=== PATIENT | female | born 1975 | race Caucasian/White ===

== ENCOUNTER → 2016-09-20 | Outpatient (CLI) | payer BC ==
[~2016-09-20] MED LIST: HUMULIN R100 UNITS/ SC; Motrin PO; NAPROSYN500 MG PO; PERCOCET 5/31 TABLET PO; PREFERA-OB P1 TABLET PO; Percocet 5/325,Endoc PO; ZOFRAN4 MG PO
== END | disposition home or self-care (01) ==
LOC: CDC 11:40
DX: Z01.810 Encounter for preprocedural cardiovascular examination (principal); E66.01 Morbid (severe) obesity due to excess calories
CPT/HCPCS: 93000

== ENCOUNTER → 2016-10-18 | Outpatient (CLI) | payer BC ==
[~2016-10-18] VITALS: Ht 167.6 cm; Wt 118.8 kg
[~2016-10-18] MED LIST changes: +GLUCOPHAGE500 MG PO; +METFORMIN HCL1000 M3 PO; +MIRENA52 MG IY; +TYLENOL EXTRA500 MG PO; +ZYRTEC10 M3 PO
[2016-10-18 13:54] LABS: ANION GAP 10 MEQ/L (2-14); CHLORIDE 104 MEQ/L (99-109); POTASSIUM 3.7 MEQ/L (3.7-5.4); SAMPLE HEMOLYSIS CHECK 0; SAMPLE ICTERIC CHECK 0; SAMPLE LIPEMIA CHECK 0; SODIUM 139 MEQ/L (136-147)
[2016-10-18 14:00] LABS: GFR ESTIMATE (CALCULATED) > 59 mL/min/; GLUCOSE 97 mg/dL (70-99); UREA NITROGEN (BUN) 11 mg/dL (9-23)
[2016-10-18 14:01] LABS: POINT-OF-CARE METER ID UU13113694
== END | disposition home or self-care (01) ==
LOC: AMB 12:46
PROVIDERS: Surgery
PROC: 0DJ08ZZ Inspection of Upper Intestinal Tract, Via Natural or Artificial Opening Endoscopic (ICD-10-PCS; principal; 2016-10-18)
DX: K21.9 Gastro-esophageal reflux disease without esophagitis (principal); E66.01 Morbid (severe) obesity due to excess calories; Z68.41 Body mass index [BMI] 40.0-44.9, adult; J30.9 Allergic rhinitis, unspecified; G47.9 Sleep disorder, unspecified; R73.01 Impaired fasting glucose
CPT/HCPCS: 80048; 82948

== ENCOUNTER 2016-10-26 06:44 | Inpatient (IN) | payer BC ==
[~2016-10-26] VITALS: Ht 167.6 cm; Wt 118.8 kg
[2016-10-26 07:35] LABS: POINT-OF-CARE METER ID UU14174212
[2016-10-26 07:48] VITALS: BP 142/88
[2016-10-26 10:35] LABS: POINT-OF-CARE METER ID UU13113675
[2016-10-26 11:56] LABS: INTERNAL CONTROL VALID? YES
[2016-10-26 12:29] LABS: POINT-OF-CARE METER ID UU13113675; POINT-OF-CARE USER ID 515036437
[2016-10-26 13:23] VITALS: BP 140/70
[2016-10-26 15:25] VITALS: BP 154/81
[2016-10-26 18:10] LABS: POINT-OF-CARE METER ID UU14162508
[2016-10-26 19:19] VITALS: BP 180/88
[2016-10-26 23:35] VITALS: BP 167/77
[2016-10-26 23:49] LABS: POINT-OF-CARE METER ID UU14162508
[2016-10-27] VITALS (9 sets, daily range): BP systolic 153–202; BP diastolic 76–102
[2016-10-27 06:27] LABS: POINT-OF-CARE METER ID UU14162508
[2016-10-27 06:49] LABS: HEMATOCRIT 35.5 % (36.0-46.0); MCH 31.1 PG (29.0-34.0); MCHC 35.2 G/DL (30.0-36.0); MCV 88.3 FL (83-99); MEAN PLAT.VOLUME 10.6 uM^3 (9.5-12.4); PLATELET COUNT 239 K/uL (156-360); RBC DIS.WIDTH-CV 13.1 % (11.8-14.6); RBC DIS.WIDTH-SD 41.9 % (39-53); RED BLOOD COUNT 4.02 M/uL (3.80-5.20)
[2016-10-27 07:17] LABS: ANION GAP 9 MEQ/L (2-14); CHLORIDE 100 MEQ/L (99-109); GFR ESTIMATE (CALCULATED) > 59 mL/min/; GLUCOSE 138 mg/dL (70-99); MAGNESIUM 1.6 mg/dl (1.3-2.7); POTASSIUM 3.9 MEQ/L (3.7-5.4); SAMPLE HEMOLYSIS CHECK 0; SAMPLE ICTERIC CHECK 0; SAMPLE LIPEMIA CHECK 0; SODIUM 135 MEQ/L (136-147); UREA NITROGEN (BUN) 9 mg/dL (9-23)
[2016-10-27] MEDS ORDERED: HYDROCODON-ACE1 EAC7 PO (08:34)
[2016-10-27 23:43] LABS: POINT-OF-CARE METER ID UU14162508
[2016-10-28 03:58] VITALS: BP 160/74
[2016-10-28 05:58] LABS: POINT-OF-CARE METER ID UU14162508
[2016-10-28 06:46] LABS: HEMATOCRIT 38.1 % (36.0-46.0); MCH 30.8 PG (29.0-34.0); MCHC 34.9 G/DL (30.0-36.0); MCV 88.2 FL (83-99); MEAN PLAT.VOLUME 10.3 uM^3 (9.5-12.4); PLATELET COUNT 228 K/uL (156-360); RBC DIS.WIDTH-SD 41.5 % (39-53); RED BLOOD COUNT 4.32 M/uL (3.80-5.20)
[2016-10-28 07:25] LABS: ANION GAP 9 MEQ/L (2-14); CHLORIDE 101 MEQ/L (99-109); GFR ESTIMATE (CALCULATED) > 59 mL/min/; GLUCOSE 129 mg/dL (70-99); POTASSIUM 3.9 MEQ/L (3.7-5.4); SAMPLE HEMOLYSIS CHECK 0; SAMPLE ICTERIC CHECK 0; SAMPLE LIPEMIA CHECK 0; SODIUM 137 MEQ/L (136-147); UREA NITROGEN (BUN) 8 mg/dL (9-23)
[2016-10-28 07:32] LABS: MAGNESIUM 2.1 mg/dl (1.3-2.7)
[2016-10-28 08:30] VITALS: BP 182/89
[2016-10-28 11:00] VITALS: BP 162/96
[2016-10-28 12:05] VITALS: BP 152/82
[2016-10-28 12:55] LABS: POINT-OF-CARE METER ID UU14162508
== END 2016-10-28 14:22 | disposition home or self-care (01) | DRG 621 ==
LOC: 2SOUTH 06:44 → 2EAST 13:16 → 2SOUTH 14:53 → 2EAST 10-28 14:22
PROVIDERS: Surgery
PROC: 0DB64Z3 Excision of Stomach, Percutaneous Endoscopic Approach, Vertical (ICD-10-PCS; principal; 2016-10-26)
DX: E66.01 Morbid (severe) obesity due to excess calories (principal); Z68.41 Body mass index [BMI] 40.0-44.9, adult; K21.9 Gastro-esophageal reflux disease without esophagitis; R73.02 Impaired glucose tolerance (oral)
CPT/HCPCS: 80048; 82948; 83735; 84100; 84703; 85027; C9113; J0131; J0330; J0690; J1100; J1170; J1644; J1650; J1815; J1885; J2250; J2270; J2405; J2710; J2765; J3010; J3480; J7120; S0020